=== PATIENT | female | born 1975 | race Caucasian/White ===

== ENCOUNTER 2016-04-04 | Emergency (ER) | payer MEDICARE, MEDICAID | END 2016-04-04 22:29 | disposition home or self-care (01) ==

== ENCOUNTER 2020-04-11 13:26 | Outpatient (CLI) | payer MEDICARE, MEDICAID ==
[2020-04-11 17:40] LABS: BASOPHILS # (AUTO) 0.1 10^3/uL (0.0-0.1); BASOPHILS % (AUTO) 0.9 %; EOSINOPHILS # (AUTO) 0.3 10^3/uL (0.0-0.7); HGB - HEMOGLOBIN 12.6 g/dL (12.0-16.0); LYMPHOCYTES % (AUTO) 31.7 %; MEAN PLATELET VOLUME 11.4 fL (7.9-10.8); MONOCYTES # (AUTO) 0.5 10^3/uL (0.0-1.0); MONOCYTES % (AUTO) 8.1 %; NEUTROPHILS # (AUTO) 3.5 10^3/uL (1.5-6.6); PLT - PLATELET COUNT 173 10^3/uL (130-450); RED BLOOD COUNT 3.94 10^6/uL (4.20-5.40); RED CELL DISTRIBUTION WIDTH 13.4 % (12.0-15.0); WHITE BLOOD COUNT 6.4 x10^3/uL (4.8-10.8)
[2020-04-11 17:57] LABS: LITHIUM 0.79 mmol/L
[2020-04-11 18:01] LABS: ALBUMIN 3.7 g/dL (3.2-5.5); ALBUMIN/GLOBULIN RATIO 1.4 (1.0-2.2); ALKALINE PHOSPHATASE 68 IU/L (42-121); ALT ALANINE AMINOTRANSFERASE 78 IU/L (10-60); AST ASPARTATE AMINOTRANSFERASE 52 IU/L (10-42); BILIRUBIN,TOTAL 0.5 mg/dL (0.2-1.0); BUN - BLOOD UREA NITROGEN 21 mg/dL (6-20); CALCIUM 8.6 mg/dL (8.5-10.3); CARBON DIOXIDE - CO2 26 mmol/L (21-32); CHLORIDE 103 mmol/L (101-111); CREATININE 1.1 mg/dL (0.4-1.0); GLUCOSE 85 mg/dL (70-100); TOTAL PROTEIN 6.3 g/dL (6.7-8.2)
[2020-04-11 18:06] LABS: CRP - C-REACTIVE PROTEIN < 1.0 mg/dL (0-1.0)
[2020-04-11 18:13] LABS: THYROID STIMULATING HORMONE 0.14 uIU/mL (0.34-5.60)
[2020-04-11 18:15] LABS: FREE T4 (FREE THYROXINE) 1.44 ng/dL (0.58-1.64)
[2020-04-11 18:24] LABS: FOLATE 16.7 ng/mL (5.90 - >24.8)
== END 2020-04-11 13:27 | disposition home or self-care (01) ==
LOC: LAB.N 13:26
PROVIDERS: ATTEND Family Medicine
DX: R20.2 Paresthesia of skin (principal); M79.606 Pain in leg, unspecified; E53.8 Deficiency of other specified B group vitamins; D64.9 Anemia, unspecified; F60.9 Personality disorder, unspecified; F41.9 Anxiety disorder, unspecified; F32.9 Major depressive disorder, single episode, unspecified
CPT/HCPCS: 36415; 80053; 80178; 82306; 82607; 82746; 84439; 84443; 85025; 85651; 86140

== ENCOUNTER 2020-04-29 07:55 | Outpatient (CLI) | payer MEDICARE, MEDICAID ==
[2020-04-29 11:43] LABS: CALCIUM 8.9 mg/dL (8.5-10.3)
== END 2020-04-29 07:56 | disposition home or self-care (01) ==
LOC: LAB.N 07:55
PROVIDERS: ATTEND Family Medicine
DX: E87.5 Hyperkalemia (principal)
CPT/HCPCS: 36415; 80048

== ENCOUNTER 2020-08-15 08:59 | Outpatient (CLI) | payer MEDICARE ==
[2020-08-15 12:32] LABS: BASOPHILS % (AUTO) 0.7 %; EOSINOPHILS # (AUTO) 0.2 10^3/uL (0.0-0.7); EOSINOPHILS % (AUTO) 4.5 %; HCT - HEMATOCRIT 40.3 % (37.0-47.0); HGB - HEMOGLOBIN 12.7 g/dL (12.0-16.0); LYMPHOCYTES # (AUTO) 1.3 10^3/uL (1.5-3.5); LYMPHOCYTES % (AUTO) 31.6 %; MEAN CORPUSCULAR HEMOGLOBIN 30.6 pg (27.0-31.0); MEAN CORPUSCULAR HGB CONC 31.5 g/dL (32.0-36.0); MEAN CORPUSCULAR VOLUME 97.1 fL (81.0-99.0); MEAN PLATELET VOLUME 11.9 fL (7.9-10.8); MONOCYTES # (AUTO) 0.4 10^3/uL (0.0-1.0); MONOCYTES % (AUTO) 9.2 %; NEUTROPHILS # (AUTO) 2.2 10^3/uL (1.5-6.6); NEUTROPHILS % (AUTO) 53.5 %; PLT - PLATELET COUNT 148 10^3/uL (130-450); RED BLOOD COUNT 4.15 10^6/uL (4.20-5.40); RED CELL DISTRIBUTION WIDTH 13.4 % (12.0-15.0)
[2020-08-15 13:07] LABS: ESTIMATED AVERAGE GLUCOSE 105 mg/dL (70-100); HEMOGLOBIN A1c% 5.3 % (4.27-6.07)
[2020-08-15 13:14] LABS: ALBUMIN 3.3 g/dL (3.2-5.5); ALBUMIN/GLOBULIN RATIO 1.1 (1.0-2.2); ALKALINE PHOSPHATASE 323 IU/L (42-121); ALT ALANINE AMINOTRANSFERASE 96 IU/L (10-60); AST ASPARTATE AMINOTRANSFERASE 59 IU/L (10-42); BILIRUBIN,TOTAL 0.6 mg/dL (0.2-1.0); BUN - BLOOD UREA NITROGEN 12 mg/dL (6-20); CALCIUM 7.9 mg/dL (8.5-10.3); CARBON DIOXIDE - CO2 27 mmol/L (21-32); CHLORIDE 104 mmol/L (101-111); GFR - MDRD 60 (>89); GLUCOSE 85 mg/dL (70-100); POTASSIUM 4.2 mmol/L (3.5-5.0); SODIUM 140 mmol/L (135-145); TOTAL PROTEIN 6.3 g/dL (6.7-8.2)
[2020-08-15 13:17] LABS: CRP - C-REACTIVE PROTEIN < 1.0 mg/dL (0-1.0)
[2020-08-15 13:21] LABS: RHEUMATOID FACTOR NEGATIVE (Negative)
[2020-08-15 13:34] LABS: THYROID STIMULATING HORMONE 0.01 uIU/mL (0.34-5.60)
[2020-08-15 14:24] LABS: FREE T4 (FREE THYROXINE) 1.34 ng/dL (0.58-1.64)
[2020-08-17 12:01] LABS: ANA SCREEN NEGATIVE (NEGATIVE)
== END 2020-08-15 09:00 | disposition home or self-care (01) ==
LOC: LAB.N 08:59
PROVIDERS: ATTEND Family Medicine
DX: R20.2 Paresthesia of skin (principal); M79.606 Pain in leg, unspecified; E53.8 Deficiency of other specified B group vitamins; D64.9 Anemia, unspecified; I73.00 Raynaud's syndrome without gangrene; G43.909 Migraine, unspecified, not intractable, without status migrainosus; M54.16 Radiculopathy, lumbar region
CPT/HCPCS: 36415; 80053; 82607; 83036; 84439; 84443; 85025; 85651; 86038; 86140; 86430

== ENCOUNTER 2021-02-13 13:43 | Outpatient (CLI) | payer MEDICARE ==
[2021-02-13 18:13] LABS: BASOPHILS # (AUTO) 0.1 10^3/uL (0.0-0.1); BASOPHILS % (AUTO) 0.8 %; EOSINOPHILS # (AUTO) 0.2 10^3/uL (0.0-0.7); EOSINOPHILS % (AUTO) 2.4 %; HCT - HEMATOCRIT 38.7 % (37.0-47.0); HGB - HEMOGLOBIN 12.3 g/dL (12.0-16.0); LYMPHOCYTES # (AUTO) 2.5 10^3/uL (1.5-3.5); LYMPHOCYTES % (AUTO) 27.2 %; MEAN CORPUSCULAR HEMOGLOBIN 29.8 pg (27.0-31.0); MEAN CORPUSCULAR HGB CONC 31.8 g/dL (32.0-36.0); MEAN CORPUSCULAR VOLUME 93.7 fL (81.0-99.0); MEAN PLATELET VOLUME 11.7 fL (7.9-10.8); MONOCYTES # (AUTO) 0.5 10^3/uL (0.0-1.0); MONOCYTES % (AUTO) 5.6 %; NEUTROPHILS # (AUTO) 5.8 10^3/uL (1.5-6.6); NEUTROPHILS % (AUTO) 63.7 %; PLT - PLATELET COUNT 194 10^3/uL (130-450); RED BLOOD COUNT 4.13 10^6/uL (4.20-5.40); RED CELL DISTRIBUTION WIDTH 15.5 % (12.0-15.0); WHITE BLOOD COUNT 9.1 x10^3/uL (4.8-10.8)
[2021-02-13 18:21] LABS: ALBUMIN 3.7 g/dL (3.2-5.5); ALBUMIN/GLOBULIN RATIO 1.4 (1.0-2.2); BILIRUBIN,TOTAL 0.4 mg/dL (0.2-1.0); CALCIUM 8.3 mg/dL (8.5-10.3); POTASSIUM 4.5 mmol/L (3.5-5.0); TOTAL PROTEIN 6.4 g/dL (6.7-8.2)
== END 2021-02-13 13:44 | disposition home or self-care (01) ==
LOC: LAB.N 13:43
PROVIDERS: ATTEND Family Medicine
DX: D64.9 Anemia, unspecified (principal); E53.8 Deficiency of other specified B group vitamins
CPT/HCPCS: 36415; 80053; 82607; 85025

== ENCOUNTER 2021-03-30 08:46 | Outpatient (CLI) | payer MEDICARE ==
[2021-03-30 12:14] LABS: BASOPHILS % (AUTO) 0.7 %; EOSINOPHILS # (AUTO) 0.2 10^3/uL (0.0-0.7); EOSINOPHILS % (AUTO) 3.1 %; HCT - HEMATOCRIT 36.1 % (37.0-47.0); HGB - HEMOGLOBIN 11.5 g/dL (12.0-16.0); LYMPHOCYTES # (AUTO) 1.3 10^3/uL (1.5-3.5); LYMPHOCYTES % (AUTO) 22.8 %; MEAN CORPUSCULAR HEMOGLOBIN 30.4 pg (27.0-31.0); MEAN CORPUSCULAR HGB CONC 31.9 g/dL (32.0-36.0); MEAN CORPUSCULAR VOLUME 95.5 fL (81.0-99.0); MONOCYTES # (AUTO) 0.5 10^3/uL (0.0-1.0); MONOCYTES % (AUTO) 8.5 %; NEUTROPHILS # (AUTO) 3.7 10^3/uL (1.5-6.6); NEUTROPHILS % (AUTO) 64.7 %; PLT - PLATELET COUNT 147 10^3/uL (130-450); RED BLOOD COUNT 3.78 10^6/uL (4.20-5.40); RED CELL DISTRIBUTION WIDTH 15.1 % (12.0-15.0); WHITE BLOOD COUNT 5.7 x10^3/uL (4.8-10.8)
[2021-03-30 12:17] LABS: ALBUMIN 3.4 g/dL (3.2-5.5); ALBUMIN/GLOBULIN RATIO 1.1 (1.0-2.2); ALKALINE PHOSPHATASE 62 IU/L (42-121); ALT ALANINE AMINOTRANSFERASE 32 IU/L (10-60); AST ASPARTATE AMINOTRANSFERASE 29 IU/L (10-42); BILIRUBIN,TOTAL 0.5 mg/dL (0.2-1.0); BUN - BLOOD UREA NITROGEN 18 mg/dL (6-20); CALCIUM 8.3 mg/dL (8.5-10.3); CARBON DIOXIDE - CO2 23 mmol/L (21-32); CHLORIDE 106 mmol/L (101-111); CHOL/HDL RATIO 2.2 (<4.4); CHOLESTEROL 142 mg/dL; CREATININE 0.8 mg/dL (0.4-1.0); GFR - MDRD 78 (>89); GLUCOSE 90 mg/dL (70-100); HDL CHOLESTEROL 66 mg/dL; LDL CHOLESTEROL,CALCULATED 53 mg/dL; LDL/HDL RATIO 0.8 (<4.4); POTASSIUM 4.4 mmol/L (3.5-5.0); SODIUM 137 mmol/L (135-145); TOTAL PROTEIN 6.4 g/dL (6.7-8.2); TRIGLYCERIDES 115 mg/dL; VLDL CHOLESTEROL 23 mg/dL
[2021-03-30 12:30] LABS: THYROID STIMULATING HORMONE 0.1 uIU/mL (0.34-5.60)
[2021-03-30 13:30] LABS: CRP - C-REACTIVE PROTEIN < 1.0 mg/dL (0-1.0)
[2021-03-30 14:25] LABS: FREE T4 (FREE THYROXINE) 0.87 ng/dL (0.58-1.64)
[2021-03-30 17:52] LABS: ESTIMATED AVERAGE GLUCOSE 111 mg/dL (70-100); HEMOGLOBIN A1c% 5.5 % (4.27-6.07)
[2021-04-01 14:52] LABS: ANA SCREEN NEGATIVE (NEGATIVE)
== END 2021-03-30 08:47 | disposition home or self-care (01) ==
LOC: LAB.N 08:46
PROVIDERS: ATTEND Family Medicine
DX: M25.519 Pain in unspecified shoulder (principal); M94.0 Chondrocostal junction syndrome [Tietze]; R07.89 Other chest pain; D69.6 Thrombocytopenia, unspecified; F31.9 Bipolar disorder, unspecified; E87.5 Hyperkalemia; E16.2 Hypoglycemia, unspecified; M54.16 Radiculopathy, lumbar region; E03.9 Hypothyroidism, unspecified; J45.909 Unspecified asthma, uncomplicated
CPT/HCPCS: 36415; 80053; 80061; 83036; 83721; 84439; 84443; 85025; 85651; 86038; 86140

== ENCOUNTER 2021-04-06 08:00 | Outpatient (CLI) | payer MEDICARE | END 2021-04-06 23:59 | disposition home or self-care (01) | LOC: LAB.N 08:00 | PROVIDERS: ATTEND Physician Assistant Medical | DX: R53.81 Other malaise (principal); R53.83 Other fatigue; Z20.822 Contact with and (suspected) exposure to COVID-19 ==

== ENCOUNTER 2021-07-21 08:30 | Outpatient (CLI) | payer MEDICARE ==
--- NOTE | 2021-07-21 14:47 | XRAY Report ---
PROCEDURE: Hip w/Pelvis 2-3V LT INDICATIONS: Radiculopathy Lumbar region TECHNIQUE: AP pelvis with lateral view(s) of the left hip(s). COMPARISON: None. FINDINGS: Bones: No fractures or dislocations. Mild left hip joint osteoarthritis is seen with joint space na rrowing and subchondral sclerosis. No evidence of avascular necrosis of femoral head. Pelvic ring dougie ears intact. No suspicious bony lesions. Post fusion changes at L4-5 level is seen. Soft tissues: The visualized bowel gas pattern is normal. No suspicious soft tissue calcifications. IMPRESSION: Mild left hip joint osteoarthritis. No fracture or dislocation. No evidence of avascular necrosis. Reviewed by: Larry Perez MD on 07/21/2021 2:46 PM PDT Approved by: Larry Perez MD on 07/21/2021 2:46 PM PDT Station ID: [id number]
--- NOTE | 2021-07-21 14:49 | XRAY Report ---
PROCEDURE: Lumbar Spine 2 View INDICATIONS: Radiculopathy Lumbar region TECHNIQUE: 3 views of the lumbar spine were acquired. COMPARISON: CT of abdomen and pelvis dated 06/26/2012. FINDINGS: Bones: 5 [id number] vertebrae are present. There is left posterior fusion at L4-5 level. Grade 1 anterolisthesis of L4 on L5 is seen measures 8 mm in distance. Mild degenerative endplate changes are seen at L3-4 and L5-S1 levels. No gross hardware loosening or failure. No vertebral body carlos christine fractures. No suspicious bony lesions. Soft tissues: Overlying bowel gas pattern is normal. No suspicious soft tissue calcifications. IMPRESSION: Post surgical changes from left posterior fusion at L4-5 level. 8 mm anterolisthesis of L4 on L5. No acute compression fracture. Mild degenerative disc disease spine. No gross hardware comp lication. Reviewed by: Larry Perez MD on 07/21/2021 2:47 PM PDT Approved by: Larry Perez MD on 07/21/2021 2:47 PM PDT Station ID: [id number]
== END 2021-07-21 08:31 | disposition home or self-care (01) ==
LOC: DI.N 08:30
PROVIDERS: ATTEND Family Medicine
DX: M51.36 Other intervertebral disc degeneration, lumbar region (principal); M43.16 Spondylolisthesis, lumbar region; M16.12 Unilateral primary osteoarthritis, left hip

== ENCOUNTER 2021-07-25 07:31 | Outpatient (CLI) | payer MEDICARE ==
[2021-07-25 11:36] LABS: HCT - HEMATOCRIT 32.9 % (37.0-47.0); HGB - HEMOGLOBIN 10.3 g/dL (12.0-16.0); MEAN CORPUSCULAR HEMOGLOBIN 29.6 pg (27.0-31.0); MEAN CORPUSCULAR HGB CONC 31.3 g/dL (32.0-36.0); MEAN CORPUSCULAR VOLUME 94.5 fL (81.0-99.0); MEAN PLATELET VOLUME 12.3 fL (7.9-10.8); RED BLOOD COUNT 3.48 10^6/uL (4.20-5.40); RED CELL DISTRIBUTION WIDTH 16.5 % (12.0-15.0); WHITE BLOOD COUNT 4.7 x10^3/uL (4.8-10.8)
[2021-07-25 12:42] LABS: ALBUMIN 3.2 g/dL (3.2-5.5); ALBUMIN/GLOBULIN RATIO 1.1 (1.0-2.2); ALKALINE PHOSPHATASE 84 IU/L (42-121); ALT ALANINE AMINOTRANSFERASE 43 IU/L (10-60); AST ASPARTATE AMINOTRANSFERASE 31 IU/L (10-42); BILIRUBIN,TOTAL 0.4 mg/dL (0.2-1.0); BUN - BLOOD UREA NITROGEN 21 mg/dL (6-20); CALCIUM 8.2 mg/dL (8.5-10.3); CARBON DIOXIDE - CO2 23 mmol/L (21-32); CHLORIDE 108 mmol/L (101-111); CHOL/HDL RATIO 1.9 (<4.4); CHOLESTEROL 147 mg/dL; CREATININE 1.2 mg/dL (0.4-1.0); GFR - MDRD 49 (>89); GLUCOSE 86 mg/dL (70-100); HDL CHOLESTEROL 78 mg/dL; LDL CHOLESTEROL,CALCULATED 59 mg/dL; LDL/HDL RATIO 0.8 (<4.4); POTASSIUM 4.8 mmol/L (3.5-5.0); SODIUM 139 mmol/L (135-145); TOTAL PROTEIN 6.1 g/dL (6.7-8.2); TRIGLYCERIDES 52 mg/dL; VLDL CHOLESTEROL 10 mg/dL
[2021-07-25 12:44] LABS: THYROID STIMULATING HORMONE 0.1 uIU/mL (0.34-5.60)
[2021-07-25 13:52] LABS: FREE T4 (FREE THYROXINE) 1.03 ng/dL (0.58-1.64)
== END 2021-07-25 07:32 | disposition home or self-care (01) ==
LOC: LAB.N 07:31
PROVIDERS: ATTEND Family Medicine
DX: E53.8 Deficiency of other specified B group vitamins (principal); D64.9 Anemia, unspecified; E03.9 Hypothyroidism, unspecified; D69.6 Thrombocytopenia, unspecified
CPT/HCPCS: 36415; 80053; 80061; 82306; 82607; 83721; 84439; 84443; 85027